=== PATIENT | male | born 1965 | race Caucasian/White ===

== ENCOUNTER 2023-02-13 23:42 | Emergency (ER) | payer OTHER ==
[2023-02-13 23:49] VITALS: BP 132/72; PULSE 70; RESP 18; TEMP 98.2; BMI 27.3
[2023-02-14] MEDS ORDERED: FAMOTIDINE 10 MG TABLET PO ONE (00:26)
[2023-02-14] MEDS ORDERED: diphenhydrAMINE HCL 25 MG CAPSULE (FP) PO ONE ×2 (00:27→00:45)
[2023-02-14] MEDS ORDERED: predniSONE 20 MG TABLET (UD) PO ONE (00:27)
[2023-02-14] MEDS ORDERED: predniSONE 20 MG TABLET (UD) ONE (00:46)
[2023-02-14] MEDS ORDERED: FAMOTIDINE 20 MG TABLET ONE (00:46)
== END 2023-02-14 01:16 | disposition home or self-care (01) ==
LOC: JER 23:42
DX: R21 Rash and other nonspecific skin eruption (principal); L29.9 Pruritus, unspecified
CPT/HCPCS: 99283-25

== ENCOUNTER 2023-06-14 15:07 | Emergency (ER) | payer OTHER ==
[2023-06-14 15:14] VITALS: BP 101/59; PULSE 74; RESP 16; TEMP 98.2; BMI 25.1
[2023-06-14] MEDS ORDERED: ACETAMINOPHEN 325 MG TABLET (FP) PO ONE (16:03)
[2023-06-14] MEDS ORDERED: ACETAMINOPHEN 325 MG TABLET (FP) ONE (16:04)
[2023-06-14] MEDS ORDERED: LIDOCAINE HCL 1%, 10 MG/ML (50 mL VIAL) SQ ONE (16:22)
[2023-06-14] MEDS ORDERED: LIDOCAINE HCL 1%, 10 MG/ML (20ML VIAL) ONE (16:24)
[2023-06-14] MEDS ORDERED: SULFAMETHOXAZOLE/TRIMETHOPRIM 800MG/160MG D.S. TABLET PO ONE (17:24)
[2023-06-14] MEDS ORDERED: SULFAMETHOXAZOLE/TRIMETHOPRIM 800MG/160MG D.S. TABLET ONE (17:32)
== END 2023-06-14 18:11 | disposition home or self-care (01) ==
LOC: JER 15:07
PROC: 0H98XZZ Drainage of Buttock Skin, External Approach (ICD-10-PCS; principal; 2023-06-14)
DX: L02.31 Cutaneous abscess of buttock (principal); L03.317 Cellulitis of buttock
CPT/HCPCS: 99283-25